=== PATIENT | male | born 1985 | race African-American/Black ===

== ENCOUNTER 2020-09-11 21:14 | Inpatient (IN) ==
[2020-09-11] MEDS ORDERED: PANTOPRAZOLE 40 MG VIAL IV STA (21:43)
[2020-09-11] MEDS ORDERED: ONDANSETRON 4 MG/2 ML VIAL IV STA (21:43)
[2020-09-11 22:34] LABS: Basophils # 0.1 10*3/uL (0.0-0.2); Basophils % 0.5 % (0.0-0.8); Eosinophils # 0.7 10*3/uL (0.0-0.87); Eosinophils % 7.8 % (0.00-10.9); Hematocrit 34.6 VOL% (42.0-52.0); Immature Granulocytes % 0.3 %; Immature Granulocytes Absolute 0.03 #; Lymphocytes # 1.1 10*3/uL (1.4-4.0); Lymphocytes % 11.1 % (21.2-54.2); Mean Corpuscular HGB Conc 31.8 GM/DL (32-36); Mean Corpuscular Volume 97.5 FL (87-102); Mean Platelet Volume 10.3 FL (9.6-12.0); Monocytes % 8.1 % (1.7-12.7); Neutrophils % 72.2 % (38.7-73.9); Platelet Count 184 T/CUMM (130-400); Red Blood Count 3.55 MC/CUMM (3.8-5.5); Red Cell Distribution Width 13.2 % (9.3-17.3); White Blood Count 9.5 T/CUMM (4-12)
[2020-09-11 22:57] LABS: Alanine Aminotransferase 21 U/L (16-61); Alkaline Phosphatase 82 U/L (45-117); Amylase 36 U/L (25-115); Aspartate Amino Transferase 10 U/L (0-37); Bilirubin,Total < 0.39 MG/DL (0.2-1.0); Blood Urea Nitrogen 61 MG/DL (7-18); CKMB % 5.1 %; Calcium 8.8 MG/DL (8.5-10.1); Carbon Dioxide 23 MMOL/L (21-32); Estimated Glom Filtration Rate 15 ML/MIN; Glucose 185 MG/DL (74-106); Osmolality,Calculated 298.5 MOS/KG (273-304); Potassium 3.8 MMOL/L (3.5-5.1); Sodium 139 MMOL/L (136-145); Total Protein 6.9 G/DL (6.4-8.2); Troponin I < 0.015 NG/ML (0.00-0.045)
[2020-09-11 23:02] LABS: INR 1.1; PT Patient Result 11.9 SECS (9.8-11.9)
[2020-09-12] MEDS ORDERED: GLUCAGON 1 MG VIAL IM PRN (00:33)
[2020-09-12] MEDS ORDERED: ONDANSETRON 4 MG/2 ML VIAL IV PRN (00:33)
[2020-09-12] MEDS ORDERED: DEXTROSE 50% 25 GM/50 ML VIAL IV PRN (00:33)
[2020-09-12] MEDS ORDERED: SODIUM CHLORIDE 0.9% 1,000 ML IV PRN (00:37)
[2020-09-12] MEDS: SODIUM CHLORIDE 0.9% 1,000 ML IV SCH (02:09)
[2020-09-12 06:08] LABS: Basophils # 0.1 10*3/uL (0.0-0.2); Basophils % 0.5 % (0.0-0.8); Eosinophils # 0.7 10*3/uL (0.0-0.87); Eosinophils % 7.1 % (0.00-10.9); Hematocrit 30.8 VOL% (42.0-52.0); Hemoglobin 9.9 GM/DL (14.0-18.0); Immature Granulocytes % 0.4 %; Immature Granulocytes Absolute 0.04 #; Lymphocytes # 1.2 10*3/uL (1.4-4.0); Lymphocytes % 13.1 % (21.2-54.2); Mean Corpuscular HGB Conc 32.1 GM/DL (32-36); Mean Corpuscular Volume 97.8 FL (87-102); Mean Platelet Volume 10.7 FL (9.6-12.0); Monocytes % 8.8 % (1.7-12.7); Neutrophils % 70.1 % (38.7-73.9); Platelet Count 162 T/CUMM (130-400); Red Blood Count 3.15 MC/CUMM (3.8-5.5); Red Cell Distribution Width 13.2 % (9.3-17.3); White Blood Count 9.3 T/CUMM (4-12)
[2020-09-12 06:22] LABS: Calcium 8.2 MG/DL (8.5-10.1); Osmolality,Calculated 299.5 MOS/KG (273-304); Potassium 3.6 MMOL/L (3.5-5.1)
[2020-09-12] MEDS: PANTOPRAZOLE 40 MG VIAL IV SCH (09:07)
[2020-09-12] MEDS: BISACODYL 5 MG TABLET PO SCH ×2 (09:08→18:43)
[2020-09-12] MEDS: amLODIPine 10 MG TABLET PO SCH (09:09)
[2020-09-12] MEDS: lisinopriL 20 MG TABLET PO SCH (09:09)
[2020-09-12] MEDS: INSULIN REGULAR 100 UNIT/ML SUBCUT SCH ×3 (12:05→22:04)
[2020-09-12] MEDS ORDERED: POLYETHYLENE GLYCOL 3350/ELECTROLYTES 4,000 ML BOTTLE PO ONE (18:00)
[2020-09-12] MEDS ORDERED: MAGNESIUM CITRATE 300 ML BOTTLE PO ONE (21:00)
[2020-09-12] MEDS: MENTHOL/ZINC OXIDE OINT 71 GM JAR TOP SCH (22:04)
[2020-09-13] MEDS: BISACODYL 5 MG TABLET PO SCH (00:30)
[2020-09-13] MEDS: SODIUM CHLORIDE 0.9% 1,000 ML IV SCH (00:35)
[2020-09-13] MEDS ORDERED: SODIUM CHLORIDE 0.9% 1,000 ML IV SCH (07:00)
[2020-09-13 07:09] LABS: INR 1.1; PT Patient Result 12.6 SECS (9.8-11.9)
[2020-09-13 07:21] LABS: Albumin 2.9 G/DL (3.4-5.0); Bilirubin,Total 0.9 MG/DL (0.2-1.0); Calcium 8.8 MG/DL (8.5-10.1); Potassium 3.4 MMOL/L (3.5-5.1); Total Protein 6.8 G/DL (6.4-8.2)
[2020-09-13] MEDS ORDERED: propofoL 200 MG/20 ML VIAL IV ONE (08:55)
[2020-09-13] MEDS ORDERED: LIDOCAINE 2% 5 ML VIAL ONE (08:55)
[2020-09-13] MEDS ORDERED: PNEUMOCOCCAL VACCINE (23 VALENT) 0.5 ML VIAL IM ONE (09:00)
[2020-09-13] MEDS: lisinopriL 20 MG TABLET PO SCH (11:26)
[2020-09-13] MEDS: PANTOPRAZOLE 40 MG VIAL IV SCH (11:26)
[2020-09-13] MEDS: amLODIPine 10 MG TABLET PO SCH (11:27)
[2020-09-13] MEDS: INSULIN REGULAR 100 UNIT/ML SUBCUT SCH ×3 (12:17→20:54)
[2020-09-13 15:03] LABS: Hematocrit 33.6 VOL% (42.0-52.0); Hemoglobin 10.8 GM/DL (14.0-18.0)
[2020-09-13] MEDS: MENTHOL/ZINC OXIDE OINT 71 GM JAR TOP SCH ×2 (15:28→20:54)
[2020-09-13] MEDS: CIPROFLOXACIN 500 MG TABLET PO SCH (20:54)
[2020-09-14] MEDS: SODIUM CHLORIDE 0.9% 1,000 ML IV SCH (00:16)
[2020-09-14] MEDS: PANTOPRAZOLE 40 MG VIAL IV SCH (08:37)
[2020-09-14] MEDS: CIPROFLOXACIN 500 MG TABLET PO SCH (08:37)
[2020-09-14] MEDS: lisinopriL 20 MG TABLET PO SCH (08:37)
[2020-09-14] MEDS: amLODIPine 10 MG TABLET PO SCH (08:38)
[2020-09-14] MEDS: INSULIN REGULAR 100 UNIT/ML SUBCUT SCH ×2 (08:44→16:56)
[2020-09-14 10:26] LABS: Basophils # 0.1 10*3/uL (0.0-0.2); Basophils % 0.8 % (0.0-0.8); Eosinophils # 0.5 10*3/uL (0.0-0.87); Eosinophils % 8.5 % (0.00-10.9); Hematocrit 31.8 VOL% (42.0-52.0); Hemoglobin 10.4 GM/DL (14.0-18.0); Immature Granulocytes % 0.3 %; Immature Granulocytes Absolute 0.02 #; Lymphocytes % 15.5 % (21.2-54.2); Mean Corpuscular HGB Conc 32.7 GM/DL (32-36); Mean Corpuscular Volume 94.6 FL (87-102); Mean Platelet Volume 10.1 FL (9.6-12.0); Monocytes % 6.9 % (1.7-12.7); Platelet Count 173 T/CUMM (130-400); Red Blood Count 3.36 MC/CUMM (3.8-5.5); Red Cell Distribution Width 12.6 % (9.3-17.3); White Blood Count 6.4 T/CUMM (4-12)
[2020-09-14 10:39] LABS: Calcium 8.7 MG/DL (8.5-10.1); Osmolality,Calculated 277.8 MOS/KG (273-304)
[2020-09-14] MEDS ORDERED: HEPARIN 10,000 UNIT/10 ML VIAL IV PRN (11:24)
[2020-09-14 15:47] VITALS: BP 158/75
[2020-09-14] MEDS: MENTHOL/ZINC OXIDE OINT 71 GM JAR TOP SCH (17:48)
[2020-09-15] MEDS ORDERED: CIPROFLOXACIN 500 MG TABLET PO SCH (09:00)
== END 2020-09-14 17:55 | DRG 393 ==
LOC: EDBD → EDUNIT# → N.ED 21:14 → N.EDINP 09-12 01:50 → N.5E 09-12 02:34
PROVIDERS: ADMIT Internal Medicine; ATTEND Internal Medicine
PROC: COLONBX (2020-09-13 07:35)

== ENCOUNTER 2021-05-23 14:06 | Inpatient (IN) ==
[2021-05-23 16:19] LABS: Albumin 2.1 G/DL (3.4-5.0); Bilirubin,Total 0.4 MG/DL (0.20-1.00); Calcium 8.5 MG/DL (8.5-10.1); Osmolality,Calculated 285.4 MOS/KG (273-304); Potassium 4.7 MMOL/L (3.5-5.1)
[2021-05-23 16:44] LABS: Basophils # 0.1 10*3/uL (0.0-0.2); Basophils % 0.6 % (0.0-0.8); Eosinophils # 0.9 10*3/uL (0.0-0.87); Eosinophils % 9.8 % (0.00-10.9); Hematocrit 24.9 VOL% (42.0-52.0); Hemoglobin 7.5 GM/DL (14.0-18.0); Immature Granulocytes % 0.4 %; Immature Granulocytes Absolute 0.04 #; Lymphocytes # 1.2 10*3/uL (1.4-4.0); Lymphocytes % 12.9 % (21.2-54.2); Mean Corpuscular HGB Conc 30.1 GM/DL (32-36); Mean Corpuscular Volume 92.9 FL (87-102); Mean Platelet Volume 9.4 FL (9.6-12.0); Monocytes % 7.3 % (1.7-12.7); NRBC # 0.06 10*3/uL; Platelet Count 291 T/CUMM (130-400); Red Blood Count 2.68 MC/CUMM (3.8-5.5); Red Cell Distribution Width 15.3 % (9.3-17.3); White Blood Count 9.4 T/CUMM (4-12)
[2021-05-23] MEDS ORDERED: ACETAMINOPHEN 325 MG TABLET PO PRN (17:22)
[2021-05-23] MEDS ORDERED: GLUCAGON 1 MG VIAL IM PRN ×2 (17:22)
[2021-05-23] MEDS ORDERED: ONDANSETRON 4 MG/2 ML VIAL IV PRN (17:22)
[2021-05-23 17:25] LABS: Anisocytosis 2+; Hypochromia Slight; Macrocytosis 1+; Microcytosis 2+; Platelet Estimate Normal
[2021-05-23 17:26] LABS: Elliptocytes Few; Poikilocytosis Few
[2021-05-23 17:28] LABS: Polychromasia 1+; Schistocytes Few
[2021-05-23] MEDS ORDERED: DEXTROSE 50% 25 GM/50 ML SYRINGE IV PRN ×2 (17:32→17:34)
[2021-05-23] MEDS: INSULIN LISPRO 100 UNIT/ML SUBCUT SCH (21:50)
[2021-05-24 05:27] LABS: Basophils # 0.1 10*3/uL (0.0-0.2); Basophils % 0.8 % (0.0-0.8); Eosinophils # 0.9 10*3/uL (0.0-0.87); Eosinophils % 10.5 % (0.00-10.9); Hematocrit 25.8 VOL% (42.0-52.0); Hemoglobin 7.5 GM/DL (14.0-18.0); Immature Granulocytes % 0.6 %; Immature Granulocytes Absolute 0.05 #; Lymphocytes # 1.2 10*3/uL (1.4-4.0); Lymphocytes % 14.9 % (21.2-54.2); Mean Corpuscular HGB Conc 29.1 GM/DL (32-36); Mean Corpuscular Volume 94.5 FL (87-102); Mean Platelet Volume 9.3 FL (9.6-12.0); NRBC # 0.03 10*3/uL; Neutrophils % 65.2 % (38.7-73.9); Platelet Count 268 T/CUMM (130-400); Red Blood Count 2.73 MC/CUMM (3.8-5.5); Red Cell Distribution Width 15.2 % (9.3-17.3); White Blood Count 8.3 T/CUMM (4-12)
[2021-05-24 05:35] LABS: INR 1.1; Partial Thromboplastin Time 30.5 SECS (23.8-32.1)
[2021-05-24 05:42] LABS: Calcium 8.8 MG/DL (8.5-10.1); Osmolality,Calculated 290.5 MOS/KG (273-304); Potassium 4.4 MMOL/L (3.5-5.1)
[2021-05-24 05:43] LABS: Alanine Aminotransferase 20 U/L (16-61); Albumin 2.1 G/DL (3.4-5.0); Alkaline Phosphatase 79 U/L (45-117); Aspartate Amino Transferase 12 U/L (0-37); Bilirubin,Total < 0.39 MG/DL (0.20-1.00); Blood Urea Nitrogen 38 MG/DL (7-18); Calcium 9.1 MG/DL (8.5-10.1); Carbon Dioxide 25 MMOL/L (21-32); Estimated Glom Filtration Rate 17 ML/MIN; Glucose 185 MG/DL (74-106); Osmolality,Calculated 286.8 MOS/KG (273-304); Potassium 4.4 MMOL/L (3.5-5.1); Sodium 137 MMOL/L (136-145)
[2021-05-24 07:38] LABS: % Iron Saturation 27.2 % (18-50); Ferritin 688.6 ng/mL (26-388)
[2021-05-24] MEDS: INSULIN LISPRO 100 UNIT/ML SUBCUT SCH ×4 (07:42→21:10)
[2021-05-24 09:58] LABS: Eosinophils,Pleural Fluid 2 %; Lymphocytes,Pleural Fluid 86 %; Monocytes,Pleural Fluid 3 %; Neutrophils,Pleural Fluid 9 %
[2021-05-24 10:07] LABS: Amylase,Body Fluid 22 U/L; Glucose,Pleural Fluid 127 MG/DL; LDH,Body Fluid 250 U/L; RBC,Pleural Fluid 36973 T/CUMM
[2021-05-24 10:11] LABS: Hepatitis B Core IgM Quant 0.07 Index; Hepatitis B Surface Ag Quant < 0.10 Index; Hepatitis B Surface Ag Result Non-Reactive (NonReactive); Hepatitis C Virus Ab Quant 0.06 Index; Hepatitis C Virus Ab Result Non-Reactive (NonReactive)
[2021-05-24] MEDS: SEVELAMER CARBONATE 800 MG TABLET PO SCH ×2 (12:38→18:15)
[2021-05-24] MEDS: buPROPion XL 150 MG TABLET PO SCH (12:38)
[2021-05-24] MEDS: amLODIPine 10 MG TABLET PO SCH (12:38)
[2021-05-24] MEDS: FERROUS SULFATE 325 MG TABLET PO SCH (18:18)
[2021-05-24] MEDS: carvediloL 25 MG TABLET PO SCH (18:18)
[2021-05-24] MEDS: DOCUSATE SODIUM 100 MG CAPSULE PO SCH (21:10)
[2021-05-24] MEDS: cilostazoL 100 MG TABLET PO SCH (21:10)
[2021-05-24] MEDS: LOSARTAN 50 MG TABLET PO SCH (21:10)
[2021-05-25 05:42] LABS: Basophils # 0.1 10*3/uL (0.0-0.2); Eosinophils # 0.9 10*3/uL (0.0-0.87); Eosinophils % 10.3 % (0.00-10.9); Hematocrit 29.2 VOL% (42.0-52.0); Hemoglobin 8.6 GM/DL (14.0-18.0); Immature Granulocytes % 0.8 %; Immature Granulocytes Absolute 0.07 #; Lymphocytes # 1.3 10*3/uL (1.4-4.0); Lymphocytes % 15.2 % (21.2-54.2); Mean Corpuscular HGB Conc 29.5 GM/DL (32-36); Mean Corpuscular Volume 94.5 FL (87-102); Mean Platelet Volume 9.8 FL (9.6-12.0); Neutrophils % 64.7 % (38.7-73.9); Platelet Count 264 T/CUMM (130-400); Red Blood Count 3.09 MC/CUMM (3.8-5.5); Red Cell Distribution Width 15.7 % (9.3-17.3); White Blood Count 8.4 T/CUMM (4-12)
[2021-05-25 06:17] LABS: Calcium 8.6 MG/DL (8.5-10.1); Osmolality,Calculated 290.3 MOS/KG (273-304); Potassium 4.7 MMOL/L (3.5-5.1)
[2021-05-25] MEDS: DOCUSATE SODIUM 100 MG CAPSULE PO SCH ×2 (10:03→22:08)
[2021-05-25] MEDS: PANTOPRAZOLE 40 MG TABLET PO SCH (10:04)
[2021-05-25] MEDS: FERROUS SULFATE 325 MG TABLET PO SCH ×2 (10:04→16:42)
[2021-05-25] MEDS: buPROPion XL 150 MG TABLET PO SCH (10:04)
[2021-05-25] MEDS: cilostazoL 100 MG TABLET PO SCH ×2 (10:04→22:08)
[2021-05-25] MEDS: amLODIPine 10 MG TABLET PO SCH (10:04)
[2021-05-25] MEDS: MULTIVITAMIN (BEROCCA) TABLET PO SCH (10:04)
[2021-05-25] MEDS: SEVELAMER CARBONATE 800 MG TABLET PO SCH ×3 (10:04→16:42)
[2021-05-25] MEDS: INSULIN LISPRO 100 UNIT/ML SUBCUT SCH ×4 (10:05→22:58)
[2021-05-25] MEDS: carvediloL 25 MG TABLET PO SCH ×2 (10:08→16:42)
[2021-05-25] MEDS: LOSARTAN 50 MG TABLET PO SCH (22:08)
[2021-05-26 05:46] LABS: Basophils # 0.1 10*3/uL (0.0-0.2); Basophils % 0.7 % (0.0-0.8); Eosinophils # 0.9 10*3/uL (0.0-0.87); Eosinophils % 11.3 % (0.00-10.9); Hematocrit 25.8 VOL% (42.0-52.0); Hemoglobin 7.7 GM/DL (14.0-18.0); Immature Granulocytes % 0.4 %; Immature Granulocytes Absolute 0.03 #; Lymphocytes # 1.3 10*3/uL (1.4-4.0); Lymphocytes % 15.2 % (21.2-54.2); Mean Corpuscular HGB Conc 29.8 GM/DL (32-36); Mean Corpuscular Volume 93.5 FL (87-102); Mean Platelet Volume 9.6 FL (9.6-12.0); Monocytes % 9.7 % (1.7-12.7); Neutrophils % 62.7 % (38.7-73.9); Platelet Count 284 T/CUMM (130-400); Red Blood Count 2.76 MC/CUMM (3.8-5.5); Red Cell Distribution Width 15.7 % (9.3-17.3); White Blood Count 8.2 T/CUMM (4-12)
[2021-05-26 06:13] LABS: Eosinophils 14 % (0-10); Hypochromia 1+; Lymphocytes 14 % (20-55); Microcytosis 1+; Ovalocytes Slight; Platelet Estimate Adequate; Segmented Neutrophils 68 % (50-85); Total Cells Counted 100
[2021-05-26 06:22] LABS: Calcium 9.1 MG/DL (8.5-10.1); Osmolality,Calculated 292.7 MOS/KG (273-304); Potassium 5.6 MMOL/L (3.5-5.1)
[2021-05-26] MEDS: INSULIN LISPRO 100 UNIT/ML SUBCUT SCH ×4 (08:03→22:58)
[2021-05-26] MEDS: SEVELAMER CARBONATE 800 MG TABLET PO SCH ×3 (08:23→17:18)
[2021-05-26] MEDS: MULTIVITAMIN (BEROCCA) TABLET PO SCH (08:23)
[2021-05-26] MEDS: FERROUS SULFATE 325 MG TABLET PO SCH ×2 (08:23→17:18)
[2021-05-26] MEDS: cilostazoL 100 MG TABLET PO SCH ×2 (08:23→22:59)
[2021-05-26] MEDS: amLODIPine 10 MG TABLET PO SCH (08:23)
[2021-05-26] MEDS: buPROPion XL 150 MG TABLET PO SCH (08:23)
[2021-05-26] MEDS: PANTOPRAZOLE 40 MG TABLET PO SCH (08:24)
[2021-05-26] MEDS: carvediloL 25 MG TABLET PO SCH ×2 (08:24→17:18)
[2021-05-26] MEDS: DOCUSATE SODIUM 100 MG CAPSULE PO SCH ×2 (08:24→22:58)
[2021-05-26] MEDS: SODIUM ZIRCONIUM CYCLOSILICATE 10 GM PACK PO SCH (08:24)
[2021-05-26] MEDS: LOSARTAN 50 MG TABLET PO SCH (22:59)
[2021-05-27 06:13] LABS: Basophils # 0.1 10*3/uL (0.0-0.2); Basophils % 0.6 % (0.0-0.8); Eosinophils # 1.1 10*3/uL (0.0-0.87); Eosinophils % 13.5 % (0.00-10.9); Hematocrit 25.5 VOL% (42.0-52.0); Hemoglobin 7.6 GM/DL (14.0-18.0); Immature Granulocytes % 0.4 %; Immature Granulocytes Absolute 0.03 #; Lymphocytes % 13.2 % (21.2-54.2); Mean Corpuscular HGB Conc 29.8 GM/DL (32-36); Mean Corpuscular Volume 92.4 FL (87-102); Mean Platelet Volume 9.5 FL (9.6-12.0); Monocytes % 8.3 % (1.7-12.7); Platelet Count 261 T/CUMM (130-400); Red Blood Count 2.76 MC/CUMM (3.8-5.5); Red Cell Distribution Width 15.3 % (9.3-17.3); White Blood Count 7.9 T/CUMM (4-12)
[2021-05-27 06:17] LABS: Calcium 8.8 MG/DL (8.5-10.1); Potassium 5.8 MMOL/L (3.5-5.1)
[2021-05-27 06:41] LABS: Eosinophils 9 % (0-10); Lymphocytes 13 % (20-55); Microcytosis 1+; Platelet Estimate Adequate; Segmented Neutrophils 69 % (50-85); Total Cells Counted 100
[2021-05-27 06:42] LABS: Hypochromia 1+
[2021-05-27] MEDS: INSULIN LISPRO 100 UNIT/ML SUBCUT SCH ×3 (11:27→22:32)
[2021-05-27] MEDS: carvediloL 25 MG TABLET PO SCH ×2 (11:27→17:37)
[2021-05-27] MEDS: FERROUS SULFATE 325 MG TABLET PO SCH ×2 (11:32→17:38)
[2021-05-27] MEDS: buPROPion XL 150 MG TABLET PO SCH (11:33)
[2021-05-27] MEDS: DOCUSATE SODIUM 100 MG CAPSULE PO SCH ×2 (11:33→22:32)
[2021-05-27] MEDS: SODIUM ZIRCONIUM CYCLOSILICATE 10 GM PACK PO SCH (11:33)
[2021-05-27] MEDS: PANTOPRAZOLE 40 MG TABLET PO SCH (11:33)
[2021-05-27] MEDS: cilostazoL 100 MG TABLET PO SCH ×2 (11:33→22:32)
[2021-05-27] MEDS: amLODIPine 10 MG TABLET PO SCH (11:33)
[2021-05-27] MEDS: MULTIVITAMIN (BEROCCA) TABLET PO SCH (11:33)
[2021-05-27] MEDS: SEVELAMER CARBONATE 800 MG TABLET PO SCH ×3 (11:33→17:38)
[2021-05-27 12:28] LABS: M. Tuberculosis PCR Result Negative (Negative); M. Tuberculosis PCR Source PLEURAL
[2021-05-27 12:43] LABS: Eosinophils,Pleural Fluid 2 %; Lymphocytes,Pleural Fluid 80 %; Monocytes,Pleural Fluid 12 %; Neutrophils,Pleural Fluid 6 %
[2021-05-27 12:48] LABS: Total Protein,Body Fluid 3.7 G/DL
[2021-05-27] MEDS: LOSARTAN 50 MG TABLET PO SCH (22:32)
[2021-05-28] MEDS: SEVELAMER CARBONATE 800 MG TABLET PO SCH ×3 (09:46→17:33)
[2021-05-28] MEDS: MULTIVITAMIN (BEROCCA) TABLET PO SCH (09:46)
[2021-05-28] MEDS: amLODIPine 10 MG TABLET PO SCH (09:46)
[2021-05-28] MEDS: cilostazoL 100 MG TABLET PO SCH (09:46)
[2021-05-28] MEDS: SODIUM ZIRCONIUM CYCLOSILICATE 10 GM PACK PO SCH (09:46)
[2021-05-28] MEDS: carvediloL 25 MG TABLET PO SCH ×2 (09:46→17:33)
[2021-05-28] MEDS: FERROUS SULFATE 325 MG TABLET PO SCH ×2 (09:46→17:33)
[2021-05-28] MEDS: buPROPion XL 150 MG TABLET PO SCH (09:46)
[2021-05-28] MEDS: PANTOPRAZOLE 40 MG TABLET PO SCH (09:46)
[2021-05-28] MEDS: DOCUSATE SODIUM 100 MG CAPSULE PO SCH (09:46)
[2021-05-28] MEDS: INSULIN LISPRO 100 UNIT/ML SUBCUT SCH ×3 (09:49→17:33)
[2021-05-28 16:12] VITALS: BP 150/77
[2021-05-30 13:01] LABS: M. Tuberculosis PCR Result Negative (Negative); M. Tuberculosis PCR Source PLEURAL
== END 2021-05-28 20:31 | DRG 186 ==
LOC: EDUNIT# → EDBD → EDSEX → N.ED 14:06 → N.3E 17:22 → SUATTDRO 17:22 → N.3E 18:46
PROVIDERS: ADMIT Internal Medicine; ATTEND Internal Medicine
PROC: IRTHORA (2021-05-24 09:00)